=== PATIENT | male | born 1960 | race Two or more races ===

== ENCOUNTER 2023-03-11 15:19 | Emergency (ER) | payer OTHER ==
[~2023-03-11 15:19] MED LIST: ASPI81 PO; ATOR40TA71 PO; LISI-892 PO; METF-1211 PO; SITA100 PO
== END 2023-03-11 15:40 | disposition left against medical advice (07) ==
LOC: EMS 15:21
DX: Z53.21 Procedure and treatment not carried out due to patient leaving prior to being seen by health care provider (principal)

== ENCOUNTER 2024-06-27 09:53 | Emergency (ER) | payer OTHER ==
[~2024-06-27] VITALS: Ht 165.1 cm; Wt 62.7 kg
[2024-06-27 10:16] VITALS: TEMP 98.2
[2024-06-27] MEDS ORDERED: SITA25 PO (11:25)
[2024-06-27] MEDS ORDERED: INSU100I26 SQ (11:25)
[2024-06-27] MEDS ORDERED: ASPI-1450 PO (11:25)
[2024-06-27] MEDS: SODIUM CHLORIDE 0.9% 2,000 ML IV ONE (11:29)
[2024-06-27] MEDS: INSULIN REGULAR, HUMAN 100 UNITS/ML IVP ONE (11:30)
[2024-06-27 12:05] LABS: LYMPHOCYTES # (AUTO) 1.4 K/uL (1.0-4.8); LYMPHOCYTES % (AUTO) 16.3 % (22.0-44.0); MEAN CORPUSCULAR VOLUME 89 fL (80-100)
[2024-06-27 12:10] LABS: BASOPHILS % (AUTO) 1.3 % (0.0-2.0); EOSINOPHILS % (AUTO) 2.8 % (1.0-6.0); HEMOGLOBIN 15.5 g/dL (13.5-17.5); MEAN CORPUSCULAR HEMOGLOBIN 29.9 pg (26.0-34.0); MEAN CORPUSCULAR HGB CONC 33.6 G/dL (31.0-37.0); MONOCYTES # (AUTO) 0.6 K/uL (0.1-1.0); MONOCYTES % (AUTO) 7.3 % (2.0-9.0); NEUTROPHILS % (AUTO) 72.3 % (40.0-70.0); PLATELET COUNT (AUTO) 234 K/uL (150-450); RED BLOOD CELL COUNT(AUTO) 5.18 MIL/uL (4.50-5.90); RED CELL DISTRIBUTION WIDTH 13.2 % (11.5-14.5); WHITE BLOOD COUNT (AUTO) 8.3 K/uL (4.5-11.0)
[2024-06-27 12:23] LABS: ANION GAP 6 mmol/L (8-16); CALCIUM, TOTAL 9.1 mg/dL (8.8-10.5); CARBON DIOXIDE 29 mmol/L (22-29); CHLORIDE 101 mmol/L (98-107); CREATININE 1.07 mg/dL (0.60-1.30); GLOMERULAR FILTR. RATE CALC > 60 mL/min (>60); LIPASE 62 U/L (16-77); POTASSIUM 3.9 mmol/L (3.5-5.1); SODIUM SERUM 136 mmol/L (136-145); TROPONIN I-HIGH SENSITIVITY 5 ng/L (<76); UREA NITROGEN, BLOOD 15 mg/dL (7-18)
[2024-06-27 12:25] LABS: GLUCOSE,RANDOM 422 mg/dL (70-110)
[2024-06-27] MEDS ORDERED: KETOROLAC TROMETHAMINE 60 MG/2 ML VIAL IM ONE (12:30)
[2024-06-27] MEDS: METHOCARBAMOL 500 MG TABLET PO ONE (13:01)
[2024-06-27] MEDS: HYDROCODONE/ACETAMINOPHEN 5-325 MG TABLET PO ONE (13:01)
[2024-06-27] MEDS: KETOROLAC TROMETHAMINE 30 MG/ML VIAL IVP ONE (13:02)
[2024-06-27] MEDS ORDERED: METH-659 PO (14:16)
[2024-06-27] MEDS ORDERED: HYDR-4062 PO (14:16)
[2024-06-27] MEDS ORDERED: IBUP-1554 PO (14:16)
[2024-06-27 14:32] VITALS: BP 142/86; PULSE 90; RESP 16; O2SAT 99
== END 2024-06-27 14:38 | disposition home or self-care (01) ==
LOC: EMS 09:56
DX: S30.0XXA Contusion of lower back and pelvis, initial encounter (principal); E11.65 Type 2 diabetes mellitus with hyperglycemia; Z79.4 Long term (current) use of insulin; Z79.82 Long term (current) use of aspirin; Z79.84 Long term (current) use of oral hypoglycemic drugs; Z79.899 Other long term (current) drug therapy
CPT/HCPCS: 99284; 96374; 96361; 96375; 80048; 82009; 82962; 83690; 84484; 85025; 36415; J1885; J7030; J1815

== ENCOUNTER 2024-08-02 12:02 | Emergency (ER) | payer OTHER ==
[~2024-08-02] VITALS: Ht 165.1 cm; Wt 68.2 kg
[~2024-08-02 12:02] MED LIST changes: +ASPI-1450 PO; -ASPI81 PO; +HYDR-4062 PO; +IBUP-1554 PO; +INSU100I26 SQ; +METH-659 PO; -SITA100 PO; +SITA25 PO
[2024-08-02] MEDS ORDERED: INSU100I26 SQ (12:16)
[2024-08-02 12:17] VITALS: BP 124/68; PULSE 92; RESP 18; TEMP 99.5; O2SAT 98
[2024-08-02 12:43] LABS: COVID AG,FIA SOURCE NASAL SWAB
[2024-08-02 13:27] LABS: INFLUENZA TYPE A NEGATIVE FOR TYPE A (NEGATIVE); INFLUENZA TYPE B NEGATIVE FOR TYPE B (NEGATIVE); SARS-COV2 (COVID) ANTIGEN,FIA Negative (Negative)
== END 2024-08-02 16:37 | disposition left against medical advice (07) ==
LOC: EMS 12:28
DX: R51.9 Headache, unspecified (principal); R42 Dizziness and giddiness; E11.9 Type 2 diabetes mellitus without complications; Z53.21 Procedure and treatment not carried out due to patient leaving prior to being seen by health care provider; Z20.822 Contact with and (suspected) exposure to COVID-19
CPT/HCPCS: 82962; 87804; 99283

== ENCOUNTER 2024-10-11 08:11 | Emergency (ER) | payer OTHER ==
[~2024-10-11] VITALS: Ht 165.1 cm; Wt 63.6 kg
[~2024-10-11 08:11] MED LIST changes: -ASPI-1450 PO; -ATOR40TA71 PO; -HYDR-4062 PO; -IBUP-1554 PO; -LISI-892 PO; -METF-1211 PO; -METH-659 PO; -SITA25 PO
[2024-10-11 08:26] VITALS: TEMP 97.4
[2024-10-11 08:41] LABS: GLUCOMETER DEV NAME(LOC) ER.7; GLUCOSE,POINT OF CARE 313 MG/DL (70-110)
[2024-10-11] MEDS: MECLIZINE HCL 25 MG TABLET PO ONE (11:19)
[2024-10-11] MEDS: KETOROLAC TROMETHAMINE 60 MG/2 ML VIAL IM ONE (11:19)
[2024-10-11 12:00] VITALS: BP 129/67; PULSE 81; RESP 16; O2SAT 97
[2024-10-11] MEDS ORDERED: IBUP-1492 PO (12:07)
[2024-10-11] MEDS ORDERED: MECL-302 PO (12:07)
== END 2024-10-11 13:16 | disposition home or self-care (01) ==
LOC: EMS 08:14
DX: R51.9 Headache, unspecified (principal); R11.2 Nausea with vomiting, unspecified; E11.9 Type 2 diabetes mellitus without complications
CPT/HCPCS: 99285; 70450; 82962; 96372; J1885